=== PATIENT | female | born 2000 | race Hispanic/Latino ===

== ENCOUNTER 2024-06-22 22:40 | Inpatient (IN) | payer MEDICAID ==
[2024-06-23] MEDS ORDERED: Acetaminophen 325 MG TAB PO PRN (00:35)
[2024-06-23] MEDS ORDERED: Ondansetron PF 4 MG/2 ML Vial IVP PRN (01:06)
[2024-06-23] MEDS: HYDROcodone/Acetaminophen 10/325 mg Tablet PO SCH (01:13)
[2024-06-23] MEDS ORDERED: diphenhydrAMINE 25 MG CAP PO PRN (01:45)
[2024-06-23] MEDS: Lactated Ringer's 1,000 ML IV SCH (02:57)
[2024-06-23] MEDS: Ketorolac Tromethamine 30 MG (1 mL) VIAL IVP SCH (03:32)
[2024-06-23 03:46] VITALS: BMI 27.4
[2024-06-23 04:21] LABS: #Basophils Less than 0.03 10x3/uL (0.0-0.2); %Basophils 0.3 % (0.0-1.0); %Eosinophils 1.2 % (0.0-10.0); %Lymphocytes 20.5 % (21.0-51.0); %Monocytes 7.1 % (0.0-10.0); %Neutrophils 70.6 % (42.0-75.0); Hematocrit 37.5 % (36.0-47.0); Hemoglobin 12.7 g/dL (12.0-16.0); Mean Corpuscular HGB CONC 33.9 g/dL (32.0-36.0); Mean Corpuscular Hemoglobin 28.1 pg (27.0-31.0); Platelet Count 266 10x3/uL (130-400); RBC Distribution Width 12.8 % (11.5-14.5); Red Blood Cell (RBC) Count 4.52 mill/uL (4.20-5.40)
[2024-06-23 04:37] LABS: ALT (SGPT) 758 U/L (8-55); AST (SGOT) 358 U/L (5-34); Albumin 3.7 g/dL (3.5-5.0); Alkaline Phosphatase 156 U/L (40-110); Anion Gap 13 mmol/L (10-20); BUN (Urea Nitrogen) 12 mg/dL (7.0-18.7); Bilirubin, Total 4.3 mg/dL (0.2-1.2); Calc. Creatinine Clearance 150 mL/min (70-130); Calcium 9.3 mg/dL (7.8-10.44); Carbon Dioxide 23 mmol/L (22-29); Chloride 108 mmol/L (98-107); Estimated GFR 128; Globulin 3.2 g/dL (2.4-3.5); Glucose 103 mg/dL (70-105); Potassium 3.7 mmol/L (3.5-5.1); Protein, Total 6.9 g/dL (6.0-8.3); Sodium 140 mmol/L (136-145)
[2024-06-23] MEDS: Piperacillin/Tazobactam 3.375 GM in Sodium Chloride 0.9% 100 ML IVPB SCH ×2 (05:18→08:49)
[2024-06-23] MEDS ORDERED: Piperacillin/Tazobactam 3.375 GM in Sodium Chloride 0.9% 100 ML IVPB SCH (06:00)
[2024-06-23] MEDS: Ketorolac Tromethamine 30 MG (1 mL) VIAL IVP PRN (10:44)
[2024-06-23] MEDS: Morphine 4 MG/ML VIAL SLOW IVP PRN (19:28)
[2024-06-24 06:05] LABS: INR-International Normal Ratio 0.9; Prothrombin Time 12.1 sec (12.0-14.7)
[2024-06-24 06:27] LABS: ALT (SGPT) 574 U/L (8-55); AST (SGOT) 261 U/L (5-34); Albumin 3.3 g/dL (3.5-5.0); Alkaline Phosphatase 144 U/L (40-110); Anion Gap 14 mmol/L (10-20); BUN (Urea Nitrogen) 9 mg/dL (7.0-18.7); Bilirubin, Total 3.4 mg/dL (0.2-1.2); Calc. Creatinine Clearance 143 mL/min (70-130); Calcium 9.1 mg/dL (7.8-10.44); Carbon Dioxide 20 mmol/L (22-29); Chloride 108 mmol/L (98-107); Estimated GFR 127; Glucose 88 mg/dL (70-105); Iron 107 ug/dL (50-170); Iron Binding Capacity, Total 309 mcg/dL (265-497); Lipase 15 U/L (8-78); Potassium 3.5 mmol/L (3.5-5.1); Protein, Total 6.3 g/dL (6.0-8.3); Sodium 138 mmol/L (136-145)
[2024-06-24 06:45] LABS: Ferritin 116.34 ng/mL (10-291)
[2024-06-24 07:39] LABS: HBsAg Index 0.23 S/CO (0-0.99); Hep A IgM AB NONREACTIVE (NonReactive); Hep A IgM S/CO 0.26 S/CO (0-0.79); Hep B Core IgM Index 0.17 S/CO (0-0.79); Hep B Surf Ag NONREACTIVE S/CO (NonReactive); Hep C IgG Ab NONREACTIVE S/CO (NonReactive); Hep C Index 0.15 S/CO (0-0.79); Hepatitis B Core IgM Abs NONREACTIVE S/CO (NonReactive)
[2024-06-24] MEDS ORDERED: Indocyanine Green 25 MG/10 ML VIAL IVP SCH (08:00)
[2024-06-24 09:53] LABS: Immunoglob - G (Total IgG) 1067 mg/dL (552-1631); Immunoglob - M (Total IgM) 104 mg/dL (33-293)
[2024-06-24] MEDS ORDERED: Midazolam HCl 2 mg/2 ml Vial ONE (13:03)
[2024-06-24] MEDS ORDERED: PROPOFOL 20 ML ONE (13:03)
[2024-06-24] MEDS ORDERED: Fentanyl 250 MCG/5 ML VIAL ONE (13:03)
[2024-06-24] MEDS ORDERED: SUGAMMADEX SODIUM 200 MG/2 ML VIAL ONE (13:03)
[2024-06-24] MEDS ORDERED: Ondansetron PF 4 MG/2 ML Vial ONE (13:04)
[2024-06-24] MEDS ORDERED: SUCCINYLCHOLINE/SOD CL,ISO/PF 200 MG/10 ML SYRINGE FS ONE (13:04)
[2024-06-24] MEDS ORDERED: Rocuronium Bromide 10 MG/ML (10ML VIAL) ONE (13:04)
[2024-06-24] MEDS ORDERED: Dexamethasone 4 mg/ml Vial ONE (13:04)
[2024-06-24] MEDS ORDERED: Lidocaine 1% PF 5 ML VIAL ONE (13:04)
[2024-06-24] MEDS ORDERED: Bupivacaine 0.25% HCL 30 ML VIAL ONE (13:08)
[2024-06-24] MEDS ORDERED: EPINEPHrine 1 MG/ML VIAL ONE (13:08)
[2024-06-24] MEDS ORDERED: Indocyanine Green 25 MG/10 ML VIAL ONE (13:29)
[2024-06-24] MEDS ORDERED: PHENYLEPHRINE-NS 100 MCG/ML 10 ML SYRINGE ONE (14:01)
[2024-06-24] MEDS ORDERED: fentaNYL PF 100 MCG/2 ML SYRINGE ONE (14:46)
[2024-06-24] MEDS ORDERED: Promethazine HCl 25 MG/ML VIAL ONE (15:10)
[2024-06-24] MEDS ORDERED: fentaNYL 50 mcg/mL 1 mL Vial ONE (15:24)
[2024-06-25 07:55] LABS: #Basophils Less than 0.03 10x3/uL (0.0-0.2); %Basophils 0.1 % (0.0-1.0); %Eosinophils 0.6 % (0.0-10.0); %Lymphocytes 23.8 % (21.0-51.0); %Neutrophils 65.1 % (42.0-75.0); Hemoglobin 12.5 g/dL (12.0-16.0); Mean Corpuscular HGB CONC 33.8 g/dL (32.0-36.0); Mean Corpuscular Hemoglobin 27.8 pg (27.0-31.0); Mean Corpuscular Volume 82.4 fL (78.0-98.0); Mean Platelet Volume 10.1 fL (7.4-10.4); Platelet Count 236 10x3/uL (130-400); RBC Distribution Width 12.6 % (11.5-14.5); Red Blood Cell (RBC) Count 4.49 mill/uL (4.20-5.40)
[2024-06-25 08:12] LABS: ALT (SGPT) 603 U/L (8-55); AST (SGOT) 307 U/L (5-34); Albumin 3.4 g/dL (3.5-5.0); Alkaline Phosphatase 151 U/L (40-110); Anion Gap 14 mmol/L (10-20); BUN (Urea Nitrogen) 8 mg/dL (7.0-18.7); Bilirubin, Total 4.8 mg/dL (0.2-1.2); Calc. Creatinine Clearance 154 mL/min (70-130); Calcium 8.8 mg/dL (7.8-10.44); Carbon Dioxide 22 mmol/L (22-29); Chloride 104 mmol/L (98-107); Estimated GFR 129; Glucose 85 mg/dL (70-105); Potassium 3.3 mmol/L (3.5-5.1); Protein, Total 6.4 g/dL (6.0-8.3); Sodium 137 mmol/L (136-145)
[2024-06-25] MEDS ORDERED: Acetaminophen/Codeine 30-300mg Tablet PO PRN (09:01)
[2024-06-25] MEDS: Potassium Chloride 20 MEQ TAB PO SCH (09:28)
[2024-06-25] MEDS: Acetaminophen 325 MG TAB PO PRN (09:28)
[2024-06-25 16:28] LABS: ALT (SGPT) 575 U/L (8-55); AST (SGOT) 247 U/L (5-34); Albumin 3.4 g/dL (3.5-5.0); Alkaline Phosphatase 154 U/L (40-110); Anion Gap 13 mmol/L (10-20); BUN (Urea Nitrogen) 9 mg/dL (7.0-18.7); Bilirubin, Total 2.4 mg/dL (0.2-1.2); Calc. Creatinine Clearance 127 mL/min (70-130); Calcium 8.8 mg/dL (7.8-10.44); Carbon Dioxide 23 mmol/L (22-29); Chloride 107 mmol/L (98-107); Estimated GFR 111; Globulin 3.2 g/dL (2.4-3.5); Glucose 112 mg/dL (70-105); Potassium 3.7 mmol/L (3.5-5.1); Protein, Total 6.6 g/dL (6.0-8.3); Sodium 139 mmol/L (136-145)
[2024-06-26 05:31] LABS: #Basophils 0.03 10x3/uL (0.0-0.2); %Basophils 0.4 % (0.0-1.0); %Eosinophils 2.8 % (0.0-10.0); %Lymphocytes 35.4 % (21.0-51.0); %Monocytes 8.7 % (0.0-10.0); %Neutrophils 51.9 % (42.0-75.0); Hematocrit 39.3 % (36.0-47.0); Mean Corpuscular HGB CONC 33.1 g/dL (32.0-36.0); Mean Corpuscular Volume 84.7 fL (78.0-98.0); Mean Platelet Volume 9.7 fL (7.4-10.4); Platelet Count 235 10x3/uL (130-400); RBC Distribution Width 13.1 % (11.5-14.5); Red Blood Cell (RBC) Count 4.64 mill/uL (4.20-5.40)
[2024-06-26 06:59] LABS: ALT (SGPT) 501 U/L (8-55); AST (SGOT) 167 U/L (5-34); Albumin 3.6 g/dL (3.5-5.0); Alkaline Phosphatase 157 U/L (40-110); Anion Gap 14 mmol/L (10-20); BUN (Urea Nitrogen) 10 mg/dL (7.0-18.7); Bilirubin, Total 1.6 mg/dL (0.2-1.2); Calc. Creatinine Clearance 135 mL/min (70-130); Calcium 9.4 mg/dL (7.8-10.44); Carbon Dioxide 22 mmol/L (22-29); Chloride 107 mmol/L (98-107); Estimated GFR 120; Globulin 3.3 g/dL (2.4-3.5); Glucose 89 mg/dL (70-105); Lipase 26 U/L (8-78); Potassium 4.1 mmol/L (3.5-5.1); Protein, Total 6.9 g/dL (6.0-8.3); Sodium 139 mmol/L (136-145)
[2024-06-26] MEDS ORDERED: PROPOFOL 20 ML ONE (08:23)
[2024-06-26] MEDS ORDERED: Lidocaine 2% PF 5 ML VIAL ONE (08:24)
[2024-06-26] MEDS ORDERED: SUCCINYLCHOLINE/SOD CL,ISO/PF 200 MG/10 ML SYRINGE FS ONE (08:24)
[2024-06-26] MEDS ORDERED: Indomethacin 50 MG SUPP ONE (08:57)
[2024-06-26] MEDS ORDERED: Iopamidol 30 ML ONE (08:57)
[2024-06-26] MEDS ORDERED: Ondansetron PF 4 MG/2 ML Vial ONE (09:23)
[2024-06-26] MEDS ORDERED: Dexamethasone 4 mg/ml Vial ONE (09:23)
[2024-06-26] MEDS ORDERED: fentaNYL 50 mcg/mL 1 mL Vial ONE (09:36)
[2024-06-26] MEDS ORDERED: PHENYLEPHRINE-NS 100 MCG/ML 10 ML SYRINGE ONE (09:58)
[2024-06-26 15:12] LABS: Smooth Muscle Total ABS 5 Units (0-19)
[2024-06-27 05:17] LABS: #Basophils 0.03 10x3/uL (0.0-0.2); %Basophils 0.3 % (0.0-1.0); %Eosinophils 1.3 % (0.0-10.0); %Monocytes 8.7 % (0.0-10.0); Hematocrit 35.2 % (36.0-47.0); Hemoglobin 11.8 g/dL (12.0-16.0); Mean Corpuscular HGB CONC 33.5 g/dL (32.0-36.0); Mean Corpuscular Hemoglobin 28.2 pg (27.0-31.0); Mean Corpuscular Volume 84.2 fL (78.0-98.0); Platelet Count 244 10x3/uL (130-400); RBC Distribution Width 12.8 % (11.5-14.5); Red Blood Cell (RBC) Count 4.18 mill/uL (4.20-5.40)
[2024-06-27 05:29] LABS: ALT (SGPT) 337 U/L (8-55); AST (SGOT) 78 U/L (5-34); Albumin 3.4 g/dL (3.5-5.0); Alkaline Phosphatase 149 U/L (40-110); Anion Gap 12 mmol/L (10-20); BUN (Urea Nitrogen) 13 mg/dL (7.0-18.7); Bilirubin, Total 1.1 mg/dL (0.2-1.2); Calc. Creatinine Clearance 145 mL/min (70-130); Carbon Dioxide 23 mmol/L (22-29); Chloride 105 mmol/L (98-107); Estimated GFR 127; Globulin 3.2 g/dL (2.4-3.5); Glucose 104 mg/dL (70-105); Potassium 3.8 mmol/L (3.5-5.1); Protein, Total 6.6 g/dL (6.0-8.3); Sodium 136 mmol/L (136-145)
[2024-06-27 05:37] LABS: EBV VCA IgM <36.0 U/mL (0.0-35.9)
[2024-06-27 15:45] VITALS: BP 115/73; TEMP 98.2
[2024-06-27] MEDS ORDERED: Ibuprofen 600 MG TAB PO PRN (21:00)
== END 2024-06-27 16:13 | disposition home or self-care (01) | DRG 418 ==
LOC: 2NO 06-23 00:13 → INTOOBSV 06-23 00:13 → SURG A 06-23 18:55 → OBSVTOIN 06-26 09:51
PROVIDERS: ADMIT Student in an Organized Health Care Education/Training Program; ATTEND Student in an Organized Health Care Education/Training Program
PROC: 0FT44ZZ Resection of Gallbladder, Percutaneous Endoscopic Approach (ICD-10-PCS; principal; 2024-06-24)
PROC: BF13YZZ Fluoroscopy of Gallbladder and Bile Ducts using Other Contrast (ICD-10-PCS; 2024-06-24)
PROC: 8E0W4CZ Robotic Assisted Procedure of Trunk Region, Percutaneous Endoscopic Approach (ICD-10-PCS; 2024-06-24)
PROC: 0FC98ZZ Extirpation of Matter from Common Bile Duct, Via Natural or Artificial Opening Endoscopic (ICD-10-PCS; 2024-06-26)
DX: K80.44 Calculus of bile duct with chronic cholecystitis without obstruction (principal); R65.10 Systemic inflammatory response syndrome (SIRS) of non-infectious origin without acute organ dysfunction; Z79.891 Long term (current) use of opiate analgesic; E80.6 Other disorders of bilirubin metabolism; R74.01 Elevation of levels of liver transaminase levels
CPT/HCPCS: 36415; 74181; 74330; 76376; 76705; 80053; 80074; 82390; 82728; 83516; 83540; 83550; 83690; 85025; 85610; 86015; 86038; 86225; 86664; 86665; 88304; 96365; 96366; 96375; 96376; C1889; G0378; J0171; J0665; J1100; J1885; J2250; J2272; J2405; J2543; J2550; J2704; J3010; J7120; Q9967; S2900